=== PATIENT | female | born 1950 | race Caucasian/White ===

== ENCOUNTER 2018-12-12 14:13 | Emergency (ER) | payer OTHER ==
[2018-12-12] MEDS ORDERED: ALBUTEROL SO4 2.5/IPRATROPIUM 0.5 INH SOL 3 ML VIAL.NEB. NEB ONE ×2 (14:20→15:12)
--- NOTE | 2018-12-12 14:22 | PDOC ---
Rapid Medical Evaluation Chief Complaint: Asthma Time Seen by Provider: 12/12/18 14:20 Medical Evaluation: Allergies Allergy/AdvReac Type Severity Reaction Status Date / Time Penicillins Allergy Verified 09/15/13 12:53 12/12/18 14:21 I have performed a brief in-person evaluation of this patient. The patient presents with a chief complaint of: asthma Pertinent physical exam findings:stable and in NAD, non-focal no gross wheezing, feels tight to take breath. using pump I have ordered the following:duoneb, The patient will proceed to the ED for further evaluation. 12/12/18 14:21
[2018-12-12 14:28] VITALS: BMI 23.0
[2018-12-12 15:31] LABS: BASO % 0.6 % (0-2.0); HEMOGLOBIN 12.1 GM/dL (10.7-15.3); LYMPH % 19.3 % (8-40); MCH 30.7 pg (25.7-33.7); MCHC 33.5 g/dl (32.0-36.0); MEAN CELL VOLUME 91.6 fl (80-96); MEAN PLT VOLUME 8.9 fl (7.5-11.1); MONO % 9.5 % (3.8-10.2); NEUT % 69.6 % (42.8-82.8); PLATELET COUNT 295 K/MM3 (134-434); RBC 3.93 M/mm3 (3.60-5.2); RDW 13.9 % (11.6-15.6); WHITE BLOOD COUNT 8.6 K/mm3 (4.0-10.0)
[2018-12-12 15:44] VITALS: BP 138/58; PULSE 74; TEMP 98
[2018-12-12 15:56] LABS: ALBUMIN 3.4 g/dl (3.4-5.0); BILIRUBIN,TOTAL 0.6 mg/dL (0.2-1); CALCIUM 8.4 mg/dL (8.5-10.1); CREATININE 0.9 mg/dL (0.55-1.3); POTASSIUM 5.1 mmol/L (3.5-5.1); TOT PROT 6.2 g/dl (6.4-8.2)
--- NOTE | 2018-12-12 16:11 | PDOC ---
History of Present Illness - General Chief Complaint: Asthma Stated Complaint: ASTHMA Time Seen by Provider: 12/12/18 14:20 History Source: Patient Exam Limitations: No Limitations - History of Present Illness Initial Comments: 12/12/18 15:08 68-year-old female presents to ED stating she feels nervous and very tremulous. Patient states intermittently feel short of breath but denies cough wheezing or fever. Patient states was seen twice here for the same and once at [facility] but symptoms continue. Patient states uses her albuterol inhaler with no relief. Patient does have history of asthma, COPD, gastritis, hypertension, hypothyroidism, and dyslipidemia Timing/Duration: intermittent Severity: mild, moderate Associated Symptoms: reports: shortness of breath, other Past History - Travel Traveled outside of the country in the last 30 days: No Close contact w/someone who was outside of country & ill: No - Past Medical History Allergies/Adverse Reactions: Allergies Allergy/AdvReac Type Severity Reaction Status Date / Time Penicillins Allergy Verified 12/12/18 14:27 Home Medications: Ambulatory Orders Calcium Carbonate/Vitamin D3 [Calcium 600/Vit D 400 Caplet] 1 each PO BID Cholecalciferol (Vitamin D3) [Vitamin D] 2,000 unit PO DAILY 12/10/14 Lipase/Protease/Amylase [Sarahi Powers 6,000 Units Capsule] 1 cap PO TIDCM 09/11/16 Nystatin Cream [Mycostatin Cream -] 1 applic TP BID #1 tube 08/29/17 Naproxen [Naprosyn -] 500 mg PO BID PRN #60 tablet 11/29/17 Fluticasone/Salmeterol [Advair Hfa 115-21 Mcg Inhaler] 1 inh PO BID 12/30/17 Omeprazole 20 mg PO DAILY #30 capsule. 03/17/18 Guaifenesin [Mucinex -] 600 mg PO BID #30 tablet.er 04/17/18 Gabapentin 100 mg PO HS #30 capsule 05/16/18 Levothyroxine [Synthroid -] 75 mcg PO DAILY 09/11/18 Diclofenac Sodium [Voltaren] 2 gm TP TID PRN #3 tube 11/14/18 Lovastatin 20 mg PO HS #30 tablet 11/14/18 Oxycodone HCl/Acetaminophen [Endocet 5-325 Tablet] 1 each PO TID PRN #90 tablet MDD 3 05/31/19 Asthma: Yes Cancer: No Cardiac Disorders: No COPD: Yes CHF: No Diabetes: No GI Disorders: Yes (chronic gastritis? ) Disorders: No HTN: Yes Hypercholesterolemia: Yes (on meds) Liver Disease: No Seizures: No Thyroid Disease: Yes (on synthroid) - Surgical History Appendectomy: Yes (2012) Cholecystectomy: Yes - Suicide/Smoking/Psychosocial Hx Smoking History: Never smoked Have you smoked in the past 12 months: No Information on smoking cessation initiated: No Hx Alcohol Use: No Drug/Substance Use Hx: No Substance Use Type: None Hx Substance Use Treatment: No Patient Lives Alone: No Lives with/in: spouse/SO Review of Systems - Review of Systems Able to Perform ROS?: Yes Constitutional: No: Symptoms Reported HEENTM: No: Symptoms Reported Respiratory: Yes: Shortness of Breath. No: Cough, Wheezing Cardiac (ROS): Yes: Lightheadedness (mild) ABD/GI: No: Symptoms Reported : No: Symptoms Reported Musculoskeletal: No: Symptoms Reported Integumentary: No: Symptoms Reported Neurological: Yes: Tremors. No: Dizziness Psychiatric: Yes: Anxiety, Sleep Pattern Change Endocrine: No: Excessive Sweating, Change in Weight Hematologic/Lymphatic: No: Symptoms Reported *Physical Exam - Vital Signs Last Vital Signs Temp Pulse Resp BP Pulse Ox 98.0 F 74 20 138/58 L 98 12/12/18 15:43 12/12/18 15:43 12/12/18 15:43 12/12/18 15:43 12/12/18 15:43 - Physical Exam General Appearance: Yes: Nourished, Appropriately Dressed. No: Apparent Distress HEENT: positive: EOMI, CHUCKY. negative: Pale Conjunctivae Neck: positive: Normal Thyroid, Supple Respiratory/Chest: positive: Lungs Clear, Normal Breath Sounds. negative: Respiratory Distress, Accessory Muscle Use Cardiovascular: positive: Regular Rhythm, Regular Rate. negative: Murmur Gastrointestinal/Abdominal: positive: Soft. negative: Tenderness Extremity: positive: Normal Inspection Integumentary: positive: Normal Color, Dry, Warm Neurologic: positive: Normal Mood/Affect (anxious appearing), Motor Strength 5/ 5 (ambulatory) Heart Score/ECG Review - ECG Intrepretation Rhythm: Regular Rhythm (rate 74, nsr) ED Treatment Course - LABORATORY CBC & Chemistry Diagram: 06/28/19 15:19 12/12/18 15:19 - ADDITIONAL ORDERS Additional order review: Laboratory Results 12/12/18 12/12/18 15:19 15:19 Sodium 139 Potassium 5.1 Chloride 106 Carbon Dioxide 31 Anion Gap 3 L BUN 10.0 Creatinine 0.9 Est GFR (CKD-EPI)AfAm 75.08 Est GFR (CKD-EPI)NonAf 64.78 Random Glucose 154 H Calcium 8.4 L Total Bilirubin 0.6 AST 13 L ALT 18 Alkaline Phosphatase 91 Total Protein 6.2 L Albumin 3.4 TSH 0.23 L 12/12/18 15:19 RBC 3.93 MCV 91.6 MCHC 33.5 RDW 13.9 MPV 8.9 D Neutrophils % 69.6 D Lymphocytes % 19.3 D Monocytes % 9.5 Eosinophils % 1.0 Basophils % 0.6 - Medications Given in the ED: ED Medications Discontinued Medications Generic Name Dose Route Start Last Admin Trade Name Freq PRN Reason Stop Dose Admin Albuterol/Ipratropium 1 amp 12/12/18 14:20 12/12/18 15:19 Duoneb - NEB 12/12/18 14:21 1 amp ONCE ONE Administration Medical Decision Making - Medical Decision Making 12/12/18 15:11 Chief complaint: Feeling of anxiety and nervous with tremors and intermittent dizziness causing shortness of breath. Patient with history of hypothyroidism currently on Synthroid and history of asthma/COPD utilizing her inhaler with no improvement Exam: Vital signs stable. Patient appears anxious lungs clear also patient bilaterally. Plan : Patient ordered for CBC, comp and TSH level 12/12/18 16:29 Laboratory Tests 12/12/18 12/12/18 12/12/18 15:19 15:19 15:19 WBC 8.6 Hgb 12.1 Hct 36.0 Neutrophils % 69.6 D Sodium 139 Potassium 5.1 Chloride 106 Carbon Dioxide 31 Anion Gap 3 L BUN 10.0 Creatinine 0.9 Est GFR (CKD-EPI)AfAm 75.08 Est GFR (CKD-EPI)NonAf 64.78 Random Glucose 154 H Calcium 8.4 L Total Bilirubin 0.6 AST 13 L ALT 18 Alkaline Phosphatase 91 Total Protein 6.2 L Albumin 3.4 TSH 0.23 L Called the office to speak with Dr. Ambriz but unvailable. Spoke to the office nurse and states pt missed her last lab appt to check her tsh since recently she had an increase of her synthroid medication. Pt will be placed back on 50mcg of synthroid until she follows up with Dr. Ambriz on Saturday *DC/Admit/Observation/Transfer Diagnosis at time of Disposition: Hyperthyroidism determined by thyroid function test - Discharge Dispostion Disposition: HOME Condition at time of disposition: Good - Referrals Referrals: Linda Quiñones MD [Primary Care Provider] - - Patient Instructions Printed Discharge Instructions: DI for Hyperthyroidism Additional Instructions: Please start your new medication tomorrow. Call Dr. Ambriz on Saturday to have your thyroid blood work done Print Language: CANADIAN - Post Discharge Activity
[2018-12-12 17:39] LABS: PLATELET ESTIMATE ADEQUATE
--- NOTE | 2018-12-15 00:33 | EKG ---
Test Reason : Blood Pressure : / mmHG Vent. Rate : 074 BPM Atrial Rate : 074 BPM P-R Int : 176 ms QRS Dur : 088 ms QT Int : 426 ms P-R-T Axes : 061 -02 031 degrees QTc Int : 472 ms NORMAL SINUS RHYTHM MODERATE VOLTAGE CRITERIA FOR LVH, MAY BE NORMAL VARIANT BORDERLINE ECG WHEN COMPARED WITH ECG OF 15-SEP-2013 13:54, NO SIGNIFICANT CHANGE WAS FOUND Confirmed by MD Kyler, Arnulfo ([id number]) on 12/15/2018 12:32:51 AM Referred By: Confirmed By:Arnulfo Chávez MD
== END 2018-12-12 17:19 | disposition home or self-care (01) ==
LOC: JER 14:13
PROC: 3E0F7GC Introduction of Other Therapeutic Substance into Respiratory Tract, Via Natural or Artificial Opening (ICD-10-PCS; principal; 2018-12-12)
DX: J45.909 Unspecified asthma, uncomplicated (principal); E05.90 Thyrotoxicosis, unspecified without thyrotoxic crisis or storm; I10 Essential (primary) hypertension; J44.9 Chronic obstructive pulmonary disease, unspecified; E78.00 Pure hypercholesterolemia, unspecified; K29.50 Unspecified chronic gastritis without bleeding
CPT/HCPCS: 36415; 80053; 84443; 85025; 93005; 93010; 94640; 99281-25

== ENCOUNTER 2020-10-27 14:53 | Observation (INO) | payer OTHER ==
[2020-10-27 15:42] VITALS: BMI 23.0
[2020-10-27 16:56] LABS: EOS % 4.9 % (0-4.5); HEMATOCRIT 31.3 % (32.4-45.2); HEMOGLOBIN 10.5 GM/dL (10.7-15.3); LYMPH % 35.7 % (8-40); MCH 31.1 pg (25.7-33.7); MCHC 33.6 g/dl (32.0-36.0); MEAN CELL VOLUME 92.5 fl (80-96); MEAN PLT VOLUME 10.1 fl (7.5-11.1); MONO % 11.2 % (3.8-10.2); NEUT % 47.2 % (42.8-82.8); PLATELET COUNT 286 K/MM3 (134-434); RBC 3.38 M/mm3 (3.60-5.2); RDW 13.9 % (11.6-15.6); WHITE BLOOD COUNT 5.8 K/mm3 (4.0-10.0)
[2020-10-27 17:09] LABS: EPI CELLS 5 /uL (0-25.1); HYALINE CASTS 1 /uL (0-3.1); PH,URINE 6.5 (5.0-8.0); URINE APPEARANCE CLEAR; URINE BACTERIA 180 /uL (0-1359); URINE BILIRUBIN NEGATIVE (NEGATIVE); URINE COLOR YELLOW; URINE GLUCOSE (UA) NEGATIVE (NEGATIVE); URINE KETONE NEGATIVE (NEGATIVE); URINE LEUK ESTERASE TRACE (NEGATIVE); URINE NITRITE NEGATIVE (NEGATIVE); URINE PROTEIN NEGATIVE (NEGATIVE); URINE RBC 1 /uL (0-23.9); URINE UROBILINOGEN 0.2 mg/dL (0.2-1.0); URINE WBC 13 /uL (0-25.8)
[2020-10-27 17:26] LABS: CHLORIDE 109 mmol/L (98-107); SODIUM 138 mmol/L (136-145)
[2020-10-27 17:28] LABS: CALCIUM 8.5 mg/dL (8.5-10.1)
[2020-10-27 17:29] LABS: ALBUMIN 3.5 g/dl (3.4-5.0); BLOOD UREA NITROGEN 14.5 mg/dL (7-18); CO2 27 mmol/L (21-32); GLUCOSE,RANDOM 76 mg/dL (74-106)
[2020-10-27 17:32] LABS: SGOT/AST 77 U/L (15-37)
[2020-10-27 17:34] LABS: BILIRUBIN,TOTAL 0.5 mg/dL (0.2-1); TOT PROT 6.7 g/dl (6.4-8.2)
[2020-10-27 17:35] LABS: ALK PHOS 79 U/L (45-117)
[2020-10-27 17:39] LABS: ANION GAP 2 MMOL/L (8-16); SGPT/ALT 22 U/L (13-61)
[2020-10-27] MEDS ORDERED: MECLIZINE HCL 12.5 MG TABLET PO PRN (21:35)
[2020-10-27] MEDS ORDERED: ASPIRIN 81 MG CHEWABLE TABLETS ONE (23:17)
[2020-10-27] MEDS ORDERED: ACETAMINOPHEN 325 MG TABLET (FP) ONE (23:18)
[2020-10-27] MEDS ORDERED: ACETAMINOPHEN 325 MG TABLET (FP) PO ONE (23:23)
[2020-10-27] MEDS ORDERED: ASPIRIN 81 MG CHEWABLE TABLETS PO ONE (23:23)
[2020-10-27 23:34] LABS: MAGNESIUM 2.4 mg/dL (1.8-2.4)
[2020-10-27] MEDS ORDERED: MELATONIN 5 MG TABLETS PO ONE (23:35)
[2020-10-27 23:37] LABS: PHOSPHOROUS 3.5 mg/dL (2.5-4.9)
[2020-10-28] MEDS ORDERED: cefTRIAXone SODIUM 1 GM VIAL ONE (00:56)
[2020-10-28] MEDS ORDERED: DEXTROSE 5%-WATER - 50 ML IVPB ONE (00:56)
[2020-10-28] MEDS: CEFTRIAXONE 1 GM in DEXTROSE 5%-WATER - 50 ML IVPB SCH (01:00)
[2020-10-28 06:05] LABS: BASO % 0.8 % (0-2.0); EOS % 5.3 % (0-4.5); HEMATOCRIT 31.5 % (32.4-45.2); HEMOGLOBIN 10.6 GM/dL (10.7-15.3); LYMPH % 31.4 % (8-40); MCH 31.1 pg (25.7-33.7); MCHC 33.7 g/dl (32.0-36.0); MEAN CELL VOLUME 92.2 fl (80-96); MEAN PLT VOLUME 9.1 fl (7.5-11.1); NEUT % 50.5 % (42.8-82.8); PLATELET COUNT 246 K/MM3 (134-434); RBC 3.42 M/mm3 (3.60-5.2); WHITE BLOOD COUNT 5.7 K/mm3 (4.0-10.0)
[2020-10-28 06:59] LABS: ALBUMIN 3.4 g/dl (3.4-5.0); ALK PHOS 75 U/L (45-117); ANION GAP 4 MMOL/L (8-16); BILIRUBIN,TOTAL 0.5 mg/dL (0.2-1); BLOOD UREA NITROGEN 16.6 mg/dL (7-18); CALCIUM 8.6 mg/dL (8.5-10.1); CHLORIDE 109 mmol/L (98-107); CO2 30 mmol/L (21-32); GLUCOSE,RANDOM 97 mg/dL (74-106); MAGNESIUM 2.2 mg/dL (1.8-2.4); PHOSPHOROUS 3.9 mg/dL (2.5-4.9); SGOT/AST 12 U/L (15-37); SGPT/ALT 13 U/L (13-61); SODIUM 142 mmol/L (136-145); TOT PROT 5.8 g/dl (6.4-8.2)
[2020-10-28] MEDS ORDERED: ENOXAPARIN NA (PORCINE) 40 MG/0.4 ML DISP.SYRIN SQ SCH (10:00)
[2020-10-28] MEDS: LIDOCAINE 5% TOPICAL PATCH TP SCH (11:32)
[2020-10-28] MEDS ORDERED: DOCUSATE SODIUM 100 MG CAPSULE (FP) PO PRN (12:40)
[2020-10-28] MEDS ORDERED: ALBUTEROL SO4 2.5/IPRATROPIUM 0.5 INH SOL 3 ML VIAL.NEB. NEB PRN (12:42)
[2020-10-28] MEDS: LEVOTHYROXINE NA 50 MCG TABLET (FP) PO SCH (13:01)
[2020-10-28] MEDS ORDERED: PT OWN MED DRAWER 7, Y5N ONE ×2 (14:26→15:58)
[2020-10-28 15:02] LABS: CHOLESTEROL 228 mg/dL (50-200); TRIGLYCERIDES 132 mg/dL (0-150)
[2020-10-28 15:03] LABS: LDL CHOLESTEROL (ONLY SJRH) 147 mg/dL (5-100)
[2020-10-28 15:04] LABS: HDL CHOLESTEROL 46 mg/dL (40-60)
[2020-10-28] MEDS: ACETAMINOPHEN 325 MG TABLET (FP) PO PRN (16:03)
[2020-10-28] MEDS: METOPROLOL TARTRATE 25 MG TABLET (FP) PO SCH ×2 (16:04→22:03)
[2020-10-28] MEDS: BUDESONIDE/FORMETEROL FUMARATE 80/4.5 mcg INHALER IH SCH ×2 (16:05→22:02)
[2020-10-28] MEDS: oxyCODONE HCL 5 MG TABLET PO PRN (19:45)
[2020-10-28 21:19] LABS: CHOLESTEROL 273 mg/dL (50-200)
[2020-10-28 21:20] LABS: TRIGLYCERIDES 157 mg/dL (0-150)
[2020-10-28 21:21] LABS: LDL CHOLESTEROL (ONLY SJRH) 172 mg/dL (5-100)
[2020-10-28 21:22] LABS: HDL CHOLESTEROL 52 mg/dL (40-60)
[2020-10-28] MEDS: LIDOCAINE PATCH REMOVAL MC SCH (22:03)
[2020-10-29] MEDS: LEVOTHYROXINE NA 50 MCG TABLET (FP) PO SCH (06:08)
[2020-10-29 07:28] LABS: TRIGLYCERIDES 140 mg/dL (0-150)
[2020-10-29 07:29] LABS: CHOLESTEROL 262 mg/dL (50-200)
[2020-10-29 07:30] LABS: LDL CHOLESTEROL (ONLY SJRH) 170 mg/dL (5-100)
[2020-10-29 07:32] LABS: HDL CHOLESTEROL 50 mg/dL (40-60)
[2020-10-29] MEDS ORDERED: DEXTROSE 5%-WATER - 50 ML IVPB ONE (08:38)
[2020-10-29] MEDS ORDERED: cefTRIAXone SODIUM 1 GM VIAL ONE (08:38)
[2020-10-29] MEDS: CEFTRIAXONE 1 GM in DEXTROSE 5%-WATER - 50 ML IVPB SCH (09:03)
[2020-10-29] MEDS: LIDOCAINE 5% TOPICAL PATCH TP SCH (09:03)
[2020-10-29] MEDS: METOPROLOL TARTRATE 25 MG TABLET (FP) PO SCH ×2 (09:04→21:47)
[2020-10-29] MEDS: ACETAMINOPHEN 325 MG TABLET (FP) PO PRN ×2 (09:08→20:09)
[2020-10-29] MEDS: BUDESONIDE/FORMETEROL FUMARATE 80/4.5 mcg INHALER IH SCH ×2 (09:12→21:47)
[2020-10-29] MEDS ORDERED: ASPIRIN COATED 81 MG TABLET.EC PO SCH (10:00)
[2020-10-29] MEDS ORDERED: ATORVASTATIN CA 40 MG TABLET (FP) PO ONE (11:02)
[2020-10-29] MEDS: LIDOCAINE PATCH REMOVAL MC SCH (21:47)
[2020-10-30] MEDS: LEVOTHYROXINE NA 50 MCG TABLET (FP) PO SCH (06:16)
[2020-10-30] MEDS: LIDOCAINE 5% TOPICAL PATCH TP SCH (09:18)
[2020-10-30] MEDS: METOPROLOL TARTRATE 25 MG TABLET (FP) PO SCH ×2 (09:18→22:33)
[2020-10-30] MEDS: BUDESONIDE/FORMETEROL FUMARATE 80/4.5 mcg INHALER IH SCH ×2 (09:18→22:33)
[2020-10-30] MEDS: ACETAMINOPHEN 325 MG TABLET (FP) PO PRN (09:18)
[2020-10-30] MEDS: oxyCODONE HCL 5 MG TABLET PO PRN (14:01)
[2020-10-30] MEDS ORDERED: ATORVASTATIN CA 40 MG TABLET (FP) PO SCH (22:00)
[2020-10-30] MEDS: LIDOCAINE PATCH REMOVAL MC SCH (22:33)
[2020-10-31] MEDS: LEVOTHYROXINE NA 50 MCG TABLET (FP) PO SCH (06:20)
[2020-10-31 08:25] LABS: BASO % 0.6 % (0-2.0); EOS % 3.6 % (0-4.5); HEMATOCRIT 34.6 % (32.4-45.2); HEMOGLOBIN 11.6 GM/dL (10.7-15.3); LYMPH % 27.7 % (8-40); MCH 30.6 pg (25.7-33.7); MCHC 33.4 g/dl (32.0-36.0); MEAN CELL VOLUME 91.8 fl (80-96); MEAN PLT VOLUME 9.5 fl (7.5-11.1); MONO % 11.3 % (3.8-10.2); NEUT % 56.8 % (42.8-82.8); PLATELET COUNT 262 K/MM3 (134-434); RBC 3.77 M/mm3 (3.60-5.2); RDW 13.5 % (11.6-15.6); WHITE BLOOD COUNT 5.7 K/mm3 (4.0-10.0)
[2020-10-31 08:52] LABS: ALBUMIN 3.7 g/dl (3.4-5.0)
[2020-10-31 08:55] LABS: BLOOD UREA NITROGEN 18.1 mg/dL (7-18); CALCIUM 9.3 mg/dL (8.5-10.1)
[2020-10-31 08:59] LABS: CREATININE 0.8 mg/dL (0.55-1.3)
[2020-10-31 09:01] LABS: BILIRUBIN,TOTAL 0.7 mg/dL (0.2-1); TOT PROT 6.5 g/dl (6.4-8.2)
[2020-10-31] MEDS: METOPROLOL TARTRATE 25 MG TABLET (FP) PO SCH (09:25)
[2020-10-31] MEDS: BUDESONIDE/FORMETEROL FUMARATE 80/4.5 mcg INHALER IH SCH (09:25)
[2020-10-31] MEDS: LIDOCAINE 5% TOPICAL PATCH TP SCH (09:25)
[2020-10-31] MEDS ORDERED: REGADENOSON 0.4 MG/5 ML PRE-FILLED SYRINGE IVPUSH ONE ×2 (11:45→13:05)
[2020-10-31] MEDS ORDERED: AMINOPHYLLINE 250 MG/10 ML VIAL ONE (13:37)
[2020-10-31] MEDS ORDERED: AMINOPHYLLINE 250 MG/10 ML VIAL IVPUSH ONE (13:38)
[2020-10-31 17:58] VITALS: BP 151/72; PULSE 89; TEMP 98.5
== END 2020-10-31 19:11 | disposition home or self-care (01) ==
LOC: JER 14:53 → JERBED 20:21 → UNDOADMOB 20:21 → INTOOBSV 20:21 → J4S 22:36 → JERBED 22:36 → J4S 10-28 09:57
PROVIDERS: ADMIT Hospitalist; ATTEND Nurse Practitioner Family
PROC: 3E033GC Introduction of Other Therapeutic Substance into Peripheral Vein, Percutaneous Approach (ICD-10-PCS; principal; 2020-10-28)
PROC: 3E03329 Introduction of Other Anti-infective into Peripheral Vein, Percutaneous Approach (ICD-10-PCS; 2020-10-28)
PROC: 3E023GC Introduction of Other Therapeutic Substance into Muscle, Percutaneous Approach (ICD-10-PCS; 2020-10-28)
DX: R56.9 Unspecified convulsions (principal); J40 Bronchitis, not specified as acute or chronic; Z86.16 Personal history of COVID-19; I10 Essential (primary) hypertension; E78.5 Hyperlipidemia, unspecified; E03.9 Hypothyroidism, unspecified; J44.9 Chronic obstructive pulmonary disease, unspecified; Z89.421 Acquired absence of other right toe(s); R55 Syncope and collapse; R10.9 Unspecified abdominal pain; K21.9 Gastro-esophageal reflux disease without esophagitis; Z89.431 Acquired absence of right foot; Z79.899 Other long term (current) drug therapy; M15.9 Polyosteoarthritis, unspecified; E05.90 Thyrotoxicosis, unspecified without thyrotoxic crisis or storm; M85.80 Other specified disorders of bone density and structure, unspecified site; M54.5 Low back pain; Z86.19 Personal history of other infectious and parasitic diseases; E55.9 Vitamin D deficiency, unspecified; S91.301A Unspecified open wound, right foot, initial encounter
CPT/HCPCS: 36415; 70450-TC; 71045-TC-FY; 78452-TC; 80053; 80061; 81003; 82607; 82746; 82962; 83036; 83605; 83721; 83735; 84100; 84132; 84436; 84443; 84484; 85025; 87086; 93005; 93010; 93017; 93306-TC; 93880-TC; 93970-TC; 96365; 96372; 96375; 97116-GP; 97161-GP; 99285-25; A9502; C9803; G0378; J2785; U0003; U0005